=== PATIENT | female | born 1985 | race African-American/Black ===

== ENCOUNTER 2024-04-12 04:30 | Inpatient (IN) | payer BC ==
[2024-04-12] MEDS: ELECTROLYTE-148 SOLN 1,000 ML IV SCH (05:00)
[2024-04-12 05:54] VITALS: BMI 26.6
[2024-04-12 06:01] LABS: INR 0.89 (0.83-1.09); POTASSIUM 4.4 mmol/L (3.5-5.1); PROTHROMBIN TIME (PATIENT) 10.1 SEC (9.7-13.0)
[2024-04-12 06:02] LABS: CALCIUM 8.9 mg/dL (8.5-10.1)
[2024-04-12 06:03] LABS: ACTIVATED PTT 27.7 SECONDS (25.2-36.5); BLOOD UREA NITROGEN 12.8 mg/dL (7-18)
[2024-04-12 06:06] LABS: CREATININE 0.9 mg/dL (0.55-1.3)
[2024-04-12 06:09] LABS: BASO % 0.5 % (0-2.0); EOS % 0.7 % (0-4.5); HEMATOCRIT 34.4 % (32.4-45.2); LYMPH % 35.3 % (8-40); MCH 27.9 pg (25.7-33.7); MCHC 32.1 g/dl (32.0-36.0); MEAN CELL VOLUME 86.9 fl (80-96); MEAN PLT VOLUME 11.7 fl (7.5-11.1); MONO % 6.9 % (3.8-10.2); NEUT % 56.6 % (42.8-82.8); PLATELET COUNT 108 10^3/uL (134-434); RBC 3.97 M/mm3 (3.60-5.2); RDW 15.8 % (11.6-15.6); WHITE BLOOD COUNT 6.4 K/mm3 (4.0-10.0)
[2024-04-12] MEDS ORDERED: OXYTOCIN 20 UNITS in 0.9% NS 20 UNIT/1,000 ML INFUS.BAG IV ONE (06:14)
[2024-04-12] MEDS: OXYTOCIN 20 UNITS in 0.9% NS 20 UNIT/1,000 ML INFUS.BAG IV SCH (06:25)
[2024-04-12] MEDS ORDERED: BISACODYL 10 MG SUPP.RECT RC PRN (06:43)
[2024-04-12] MEDS ORDERED: ACETAMINOPHEN 325 MG TABLET (FP) PO PRN (06:43)
[2024-04-12] MEDS ORDERED: METHYLERGONOVINE MALEATE 0.2 MG/1 ML AMP IM PRN (06:43)
[2024-04-12] MEDS ORDERED: BENZOCAINE 28 GM HEMORRHOIDAL OINTMENT TP PRN (06:43)
[2024-04-12] MEDS ORDERED: oxyCODONE HCL 5 MG TABLET PO PRN (06:43)
[2024-04-12] MEDS ORDERED: IBUPROFEN 600 MG TABLET (FP) PO ONE (06:52)
[2024-04-12] MEDS: IBUPROFEN 600 MG TABLET (FP) PO PRN (06:55)
[2024-04-12 09:14] VITALS: RESP 18
[2024-04-12] MEDS: FERROUS SO4 325 MG TABLET (FP) PO SCH (09:58)
[2024-04-12] MEDS: PRENATAL VITAMINS W/ FOLIC ACID TABLET (FP) PO SCH (09:58)
[2024-04-12] MEDS: BENZOCAINE 20% 57 GM BOTTLE TP PRN (09:58)
[2024-04-12] MEDS: WITCH HAZEL 50% (TUCKS) 40 PAD/JAR PAD TP PRN (09:58)
[2024-04-13 06:50] LABS: BASO % 0.5 % (0-2.0); EOS % 0.7 % (0-4.5); HEMATOCRIT 29.5 % (32.4-45.2); HEMOGLOBIN 9.4 GM/dL (10.7-15.3); LYMPH % 21.9 % (8-40); MCH 27.8 pg (25.7-33.7); MCHC 31.8 g/dl (32.0-36.0); MEAN CELL VOLUME 87.3 fl (80-96); MEAN PLT VOLUME 10.4 fl (7.5-11.1); MONO % 6.7 % (3.8-10.2); NEUT % 70.2 % (42.8-82.8); PLATELET COUNT 100 10^3/uL (134-434); RBC 3.38 M/mm3 (3.60-5.2); RDW 16.1 % (11.6-15.6); WHITE BLOOD COUNT 8.3 K/mm3 (4.0-10.0)
[2024-04-13] MEDS ORDERED: SENNOSIDES/DOCUSATE COMBO (SENNA PLUS) TABLET (UD) PO PRN (22:00)
[2024-04-14] MEDS: ELECTROLYTE-148 SOLN 1,000 ML IV SCH (07:55)
[2024-04-14 09:31] VITALS: BP 116/81; PULSE 90; TEMP 98.2
== END 2024-04-14 13:15 | disposition home or self-care (01) | DRG 807 ==
LOC: JDEL 04:30 → JLDR 05:00 → J3W 09:00
PROVIDERS: ADMIT Obstetrics & Gynecology; ATTEND Obstetrics & Gynecology
PROC: 10E0XZZ Delivery of Products of Conception, External Approach (ICD-10-PCS; principal; 2024-04-12)
PROC: 0W8NXZZ Division of Female Perineum, External Approach (ICD-10-PCS; 2024-04-12)
DX: O48.0 Post-term pregnancy (principal); Z37.0 Single live birth; Z3A.40 40 weeks gestation of pregnancy
CPT/HCPCS: 36415; 59409; 80048; 85025; 85610; 85730; 86780; 86803; 86850; 86900; 86901